=== PATIENT | female | born 1930 | race Caucasian/White ===

== ENCOUNTER 2017-01-12 08:57 | Emergency (ER) | payer OTHER ==
--- NOTE | 2017-01-12 10:31 | DIAGNOSTIC IMAGING REPORT ---
PROCEDURE: XR ELBOW 3 OR 4 VIEWS - RIGHT INDICATION: TRAUMA/INJURY TECHNIQUE: Four views. COMPARISON: None. FINDINGS: Osseous structures and joint spaces are normal. No evidence of an effusion. IMPRESSION: 1. Normal right elbow.
--- NOTE | 2017-01-12 11:14 | ED CLINICAL REPORT ---
Clinical Report - Physicians/Mid Levels [facility] [address] [place] [place] [address] 01/12/2017 8:57 [id number] Time Seen: 09:33 Jan 12 2017. Historian- patient. CPT: ER phys charges level 4 plus (#564887). Up to 2.5 cm simple scalp, neck (#[id number]). HISTORY OF PRESENT ILLNESS Location of injuries- (right elbow and right forearm.). Chief Complaint: right elbow and right forearm. The injury occurred just prior to arrival. Fell. Occurred at home. ( FALL (while walking down the last 2 steps, into a closed door)). The patient complains of moderate pain. No blow to the head, neck pain or loss of consciousness. Not dazed. (Right leg has periodically gone out on her since age 28. Her leg gave out when she fell today,). REVIEW OF SYSTEMS No numbness, dizziness, chest pain, difficulty breathing or headache. No nausea, abdominal pain, fever or vomiting. She sustained skin laceration but has no pain on weight bearing. All systems otherwise negative, except as recorded above. PAST HISTORY Pacemaker. Head Injury. Drop foot. Back Pain. Heart valve replacement. ADDITIONAL SURGERIES: Back Surgery. Cataract Surgery. Heart valve surgery. Medications: Eliquis Oral (Tablet 2.5 mg) 1 tablet, daily. Potassium Chloride Oral 10 meq, 2x a day. Vitamin C (Calcium Ascorbate) Oral. Vitamin B 12 Oral. Alertec 10 mg daily. Aspirin Oral (Tablet 81 mg). Butrans Transdermal (Patch Weekly 10 mcg/hr), weekly. Bystolic Oral (Tablet 5 mg). Furosemide Oral 20 mg, daily. Vitamin D Oral 5000u. Allergies: Cortisone. Iodine. IV Contrast. Metoprolol. Sulfa Antibiotics. SOCIAL HISTORY Light tobacco smoker (cigarette)- less than 1/2 a pack per day. No alcohol use or drug use. ADDITIONAL NOTES The nursing notes have been reviewed. PHYSICAL EXAM Vital Signs: 01/12/2017 09:16 BP: 143/69. HR: 64. RR: 19. O2 saturation: 98%. Temp: 97.9 F. Pain level now: 3/10. Appearance: Alert. No acute distress. Head: Head non-tender. No swelling of head. Eyes: Pupils equal, round and reactive to light. EOM intact. ENT: Pharynx normal. Neck: Painless ROM. Non-tender. CVS: Heart sounds normal. Pulses normal. Respiratory: Breath sounds normal. Chest nontender. Abdomen: Soft and nontender. Back: No tenderness. Skin: Skin warm. Normal skin color. Extremities: Right elbow: moderate tenderness and swelling, laceration and small abrasion located in the area of the radial head. SEE LACERATION PROCEDURE NOTE. Neurovascular intact distally. No joint effusion or limitation in ROM. Neuro: Oriented X 3. No motor deficit. No sensory deficit. Reflexes normal. LABS, X-RAYS, AND EKG X-Rays: Right elbow negative. PROGRESS AND PROCEDURES Laceration Repair: Location: right elbow. Length: 2 cm. Complexity: simple (local anesthesia used and sutured). Wound depth/shape- subcutaneous and flap-like. Wound is clean. Distal neuro/vascular/tendon status normal. Local anesthesia provided using 2% lidocaine with bicarb. Prepped with Hibiclens. Wound explored, cleansed, irrigated and examined to the base in bloodless field extensively with normal saline. Closure of skin: interrupted 4-0 (3 sutures). Post-procedure: she is stable and there are no complications. Bleeding is controlled and neuro-vascular status is intact distal to the wound. Dressing applied. Tetanus immunization given. Estimated blood loss: 1 mL. Course of Care: Only point of injury is the right elbow. Patient/family counseled. Disposition: Discharged. Condition: stable. CLINICAL IMPRESSION Single deep laceration to the right elbow.No foreign body present. Single contusion with soft tissue hematoma to the right elbow. Fall on same level by stumbling. INSTRUCTIONS Apply ice for 15-20 minutes three times a day for one days. Protect wound and keep wound area clean. Change dressing twice daily. Keep wounds dry. You may wash wounds briefly, then dry. Apply neosporin twice daily. Sutures should be removed in seven days. Warnings: TETANUS: You were given a tetanus shot during your visit. Make a note for future reference. GENERAL WARNINGS: Return or contact your physician immediately if your condition worsens or changes unexpectedly, if not improving as expected, or if other problems arise. Your Current Medications: CONTINUE TAKING THE FOLLOWING MEDICATIONS: Alertec* : 10 mg daily. Aspirin Oral : Tablet 81 mg. Butrans Transdermal : Patch Weekly 10 mcg/hr, weekly. Bystolic Oral : Tablet 5 mg. Eliquis Oral : Tablet 2.5 mg, 1 tablet daily. Furosemide Oral : 20 mg daily. Potassium Chloride Oral : 10 meq 2x a day. Vitamin B 12 Oral. Vitamin C (Calcium Ascorbate) Oral. Vitamin D Oral : 5000u. OTC Medications: Acetaminophen (available over the counter): take according to label instructions. Follow-up: Follow up with your doctor in one week. Call for an appointment. Understanding of the discharge instructions verbalized by patient and family. (Electronically signed by Koko Ramirez MD 01/13/2017 7:39)
--- NOTE | 2017-01-12 11:14 | ED NURSING NOTES ---
Clinical Report - Nurses [facility] [address] [place] [address] 01/12/2017 8:57 Patient: DANUTA STARR TRIAGE Triage time 09:16. Acuity: LEVEL 4. Chief Complaint: FALL (while walking down the last 2 steps, into a closed door). Alert. --09:27 Odilia Mercado R.N. 09:16 01/12/17. BP: 143/69. HR: 64. RR: 19. O2 saturation: 98%. Temp: 97.9 F. Pain level now: 01/12. --09:27 Odilia Mercado R.N. Weight: 52.1 kg stated. Height/Length: 60 inches Per Patient. BMI: 22.4. --09:17 Odilia Mercado R.N. Medications Alertec 10 mg daily. Aspirin Oral (Tablet 81 mg). Butrans Transdermal (Patch Weekly 10 mcg/hr), weekly. Bystolic Oral (Tablet 5 mg). Furosemide Oral 20 mg, daily. Vitamin D Oral 5000u. --09:19 Odilia Mercado R.N. Vitamin B 12 Oral. --09:20 Odilia Mercado R.N. Vitamin C (Calcium Ascorbate) Oral. --09:21 Odilia Mercado R.N. Potassium Chloride Oral 10 meq, 2x a day. --09:39 Odilia Mercado R.N. Eliquis Oral (Tablet 2.5 mg) 1 tablet, daily. --09:43 Odilia Mercado R.N. The following entry was struck by Odilia Mercado R.N., 09:39 (01/12/17) Reason - other. <<STRICKEN ENTRY-- Potassimin Oral 10 meq BID. --09:19 Odilia Mercado R.N. --END STRIKE>>. Allergies Iodine. Sulfa Antibiotics. --09:18 Odilia Mercado R.N. Cortisone. IV Contrast. Metoprolol. --09:22 Odilia Mercado R.N. History Arrived by private vehicle. Historian: patient. Location of injuries: right elbow and right forearm. This occurred just prior to arrival and today. Occurred at home. Treatment VENUE ATTENDANT: None. SOCIAL HX: Light tobacco smoker- less than 1/2 a pack per day. No alcohol use or drug use. FUNCTIONAL ASSESSMENT: Functional assessment: no impairments noted. LEARNING NEEDS ASSESSMENT: The learning needs assessment revealed no barriers. ABUSE ASSESSMENT: Abuse assessment: ('yes') The patient was asked "Do you feel safe in your home?". --09:27 Odilia Mercado R.N. PROBLEMS: Pacemaker. Head Injury. Drop foot. Back Pain. Heart valve replacement. --09:23 Odilia Mercado R.N. ADDITIONAL SURGERIES: Back Surgery. Cataract Surgery. Heart valve surgery. --09:24 Odilia Mercado R.N. Interventions ID band on patient. To room. --09:27 Odilia Mercado R.N. PHYSICAL ASSESSMENT GENERAL / NEURO / PSYCH: Alert. Oriented X 4. RESPIRATORY: Respirations not labored. SKIN: ( appears to be a skin tear about 1 inch in length, will be easier to assess after cleaning blood off of it.). --09:28 Odilia Mercado R.N. NURSING PROGRESS NOTES 09:28 01/12/17. Patient identifiers checked. Call light placed in reach. Bed placed in lowest position. Patient ready for evaluation- chart flagged. --09:28 Odilia Mercado R.N. 09:34 01/12/2017 TDAP IM 0.5 mL given. (Lot#: [id number], expiration date: 08/09/2018, Petroleum Refinery Laborer: sanofi pasteur). Allergies verified and confirmed 5 rights. Vaccine information statement provided to the patient. --09:34 Odilia Mercado R.N. 11:15. Wound cleansed with sterile saline. Applied clean dressing consisting of adaptic. Secured with tape and kerlix. --11:22 Jesenia Gallego R.N. DISPOSITION / DISCHARGE 11:20. Condition at departure: improved. No learning barriers present. Discharge instructions provided and reviewed with the patient and family. Reviewed wound care instructions. Patient and family verbalized understanding. Written instructions provided in Greek. The patient was discharged home and accompanied by family. She left the Emergency Department ambulatory and via private vehicle. Family member driving. Medication list reviewed and validated. --11:24 Jesenia Gallego R.N. 11:22 01/12/17. BP: 126/76. HR: 69. RR: 18. O2 saturation: 97% on room air. Temp: deferred. Pain level now: 11/14. 09:16 01/12/17. BP: 143/69. HR: 64. RR: 19. O2 saturation: 98%. Temp: 97.9 F. Pain level now: 01/12. --11:24 Jesenia Gallego R.N. Locked/Released at 01/12/2017 11:25 by Jesenia Gallego R.N.
--- NOTE | 2017-01-12 11:14 | ED ORDER SUMMARY ---
..... Patient: DANUTA STARR OrderSheet [facility] VisitID: [id number] [address] [place] [address] 86y, F Registration Date/Time: 01/12/2017 ORDER SHEET Weight: 52.1 kg (stated) Allergies: Iodine, Sulfa Antibiotics, Cortisone, IV Contrast, Metoprolol GENERAL ORDERS: Elbow 3 or 4V Right Urgent (09:50 01/12/2017 Octavio HATCH) ([facility] (10:10 Abril) MEDICATION ORDERS: Tdap IM 0.5 mL (per protocol) (09:33 01/12/2017 Eber R.NKristie verbal order read back to Octavio HATCH) (9:34 Eber R.N.) IV FLUIDS: ORDER SHEET NOTES: [Electronically signed by Jesenia Gallego R.N. (11:25 01/12/2017)] [Electronically signed by Koko Ramirez MD (07:39 01/13/2017)] [Electronically locked/signed by Jesenia Gallego R.N. (11:25 01/12/2017)]
--- NOTE | 2017-01-12 11:14 | ED CLINICAL REPORT ---
Clinical Report - Physicians/Mid Levels [facility] [address] [place] [address] 01/12/2017 8:57 [id number] Time Seen: 09:33 Jan 12 2017. Historian- patient. CPT: ER phys charges level 4 plus (#349040). Up to 2.5 cm simple scalp, neck (#[id number]). HISTORY OF PRESENT ILLNESS Location of injuries- (right elbow and right forearm.). Chief Complaint: right elbow and right forearm. The injury occurred just prior to arrival. Fell. Occurred at home. ( FALL (while walking down the last 2 steps, into a closed door)). The patient complains of moderate pain. No blow to the head, neck pain or loss of consciousness. Not dazed. (Right leg has periodically gone out on her since age 28. Her leg gave out when she fell today,). REVIEW OF SYSTEMS No numbness, dizziness, chest pain, difficulty breathing or headache. No nausea, abdominal pain, fever or vomiting. She sustained skin laceration but has no pain on weight bearing. All systems otherwise negative, except as recorded above. PAST HISTORY Pacemaker. Head Injury. Drop foot. Back Pain. Heart valve replacement. ADDITIONAL SURGERIES: Back Surgery. Cataract Surgery. Heart valve surgery. Medications: Eliquis Oral (Tablet 2.5 mg) 1 tablet, daily. Potassium Chloride Oral 10 meq, 2x a day. Vitamin C (Calcium Ascorbate) Oral. Vitamin B 12 Oral. Alertec 10 mg daily. Aspirin Oral (Tablet 81 mg). Butrans Transdermal (Patch Weekly 10 mcg/hr), weekly. Bystolic Oral (Tablet 5 mg). Furosemide Oral 20 mg, daily. Vitamin D Oral 5000u. Allergies: Cortisone. Iodine. IV Contrast. Metoprolol. Sulfa Antibiotics. SOCIAL HISTORY Light tobacco smoker (cigarette)- less than 1/2 a pack per day. No alcohol use or drug use. ADDITIONAL NOTES The nursing notes have been reviewed. PHYSICAL EXAM Vital Signs: 01/12/2017 09:16 BP: 143/69. HR: 64. RR: 19. O2 saturation: 98%. Temp: 97.9 F. Pain level now: 3/10. Appearance: Alert. No acute distress. Head: Head non-tender. No swelling of head. Eyes: Pupils equal, round and reactive to light. EOM intact. ENT: Pharynx normal. Neck: Painless ROM. Non-tender. CVS: Heart sounds normal. Pulses normal. Respiratory: Breath sounds normal. Chest nontender. Abdomen: Soft and nontender. Back: No tenderness. Skin: Skin warm. Normal skin color. Extremities: Right elbow: moderate tenderness and swelling, laceration and small abrasion located in the area of the radial head. SEE LACERATION PROCEDURE NOTE. Neurovascular intact distally. No joint effusion or limitation in ROM. Neuro: Oriented X 3. No motor deficit. No sensory deficit. Reflexes normal. LABS, X-RAYS, AND EKG X-Rays: Right elbow negative. PROGRESS AND PROCEDURES Laceration Repair: Location: right elbow. Length: 2 cm. Complexity: simple (local anesthesia used and sutured). Wound depth/shape- subcutaneous and flap-like. Wound is clean. Distal neuro/vascular/tendon status normal. Local anesthesia provided using 2% lidocaine with bicarb. Prepped with Hibiclens. Wound explored, cleansed, irrigated and examined to the base in bloodless field extensively with normal saline. Closure of skin: interrupted 4-0 (3 sutures). Post-procedure: she is stable and there are no complications. Bleeding is controlled and neuro-vascular status is intact distal to the wound. Dressing applied. Tetanus immunization given. Estimated blood loss: 1 mL. Course of Care: Only point of injury is the right elbow. Patient/family counseled. Disposition: Discharged. Condition: stable. CLINICAL IMPRESSION Single deep laceration to the right elbow.No foreign body present. Single contusion with soft tissue hematoma to the right elbow. Fall on same level by stumbling. INSTRUCTIONS Apply ice for 15-20 minutes three times a day for one days. Protect wound and keep wound area clean. Change dressing twice daily. Keep wounds dry. You may wash wounds briefly, then dry. Apply neosporin twice daily. Sutures should be removed in seven days. Warnings: TETANUS: You were given a tetanus shot during your visit. Make a note for future reference. GENERAL WARNINGS: Return or contact your physician immediately if your condition worsens or changes unexpectedly, if not improving as expected, or if other problems arise. Your Current Medications: CONTINUE TAKING THE FOLLOWING MEDICATIONS: Alertec* : 10 mg daily. Aspirin Oral : Tablet 81 mg. Butrans Transdermal : Patch Weekly 10 mcg/hr, weekly. Bystolic Oral : Tablet 5 mg. Eliquis Oral : Tablet 2.5 mg, 1 tablet daily. Furosemide Oral : 20 mg daily. Potassium Chloride Oral : 10 meq 2x a day. Vitamin B 12 Oral. Vitamin C (Calcium Ascorbate) Oral. Vitamin D Oral : 5000u. OTC Medications: Acetaminophen (available over the counter): take according to label instructions. Follow-up: Follow up with your doctor in one week. Call for an appointment. Understanding of the discharge instructions verbalized by patient and family. (Electronically signed by Koko Ramirez MD 01/13/2017 7:39)
--- NOTE | 2017-01-12 11:14 | ED ORDER SUMMARY ---
..... Patient: DANUTA STARR OrderSheet [facility] VisitID: [id number] [address] [place] [address] 86y, F Registration Date/Time: 01/12/2017 ORDER SHEET Weight: 52.1 kg (stated) Allergies: Iodine, Sulfa Antibiotics, Cortisone, IV Contrast, Metoprolol GENERAL ORDERS: Elbow 3 or 4V Right Urgent (09:50 01/12/2017 Octavio HATCH) ([facility] (10:10 Abrli) MEDICATION ORDERS: Tdap IM 0.5 mL (per protocol) (09:33 01/12/2017 Eber R.NKristie verbal order read back to Octavio HATCH) (9:34 Eber R.N.) IV FLUIDS: ORDER SHEET NOTES: [Electronically signed by Jesenia Gallego R.N. (11:25 01/12/2017)] [Electronically signed by Koko Ramirez MD (07:39 01/13/2017)] [Electronically locked/signed by Jesenia Gallego R.N. (11:25 01/12/2017)]
--- NOTE | 2017-01-12 11:14 | ED NURSING NOTES ---
Clinical Report - Nurses [facility] [address] [place] [address] 01/12/2017 8:57 Patient: DANUTA STARR TRIAGE Triage time 09:16. Acuity: LEVEL 4. Chief Complaint: FALL (while walking down the last 2 steps, into a closed door). Alert. --09:27 Odilia Mercado R.N. 09:16 01/12/17. BP: 143/69. HR: 64. RR: 19. O2 saturation: 98%. Temp: 97.9 F. Pain level now: 01/12. --09:27 Odilia Mercado R.N. Weight: 52.1 kg stated. Height/Length: 60 inches Per Patient. BMI: 22.4. --09:17 Odilia Mercado R.N. Medications Alertec 10 mg daily. Aspirin Oral (Tablet 81 mg). Butrans Transdermal (Patch Weekly 10 mcg/hr), weekly. Bystolic Oral (Tablet 5 mg). Furosemide Oral 20 mg, daily. Vitamin D Oral 5000u. --09:19 Odilia Mercado R.N. Vitamin B 12 Oral. --09:20 Odilia Mercado R.N. Vitamin C (Calcium Ascorbate) Oral. --09:21 Odilia Mercado R.N. Potassium Chloride Oral 10 meq, 2x a day. --09:39 Odilia Mercado R.N. Eliquis Oral (Tablet 2.5 mg) 1 tablet, daily. --09:43 Odilia Mercado R.N. The following entry was struck by Odilia Mercado R.N., 09:39 (01/12/17) Reason - other. <<STRICKEN ENTRY-- Potassimin Oral 10 meq BID. --09:19 Odilia Mercado R.N. --END STRIKE>>. Allergies Iodine. Sulfa Antibiotics. --09:18 dOilia Mercado R.N. Cortisone. IV Contrast. Metoprolol. --09:22 Odilia Mercado R.N. History Arrived by private vehicle. Historian: patient. Location of injuries: right elbow and right forearm. This occurred just prior to arrival and today. Occurred at home. Treatment PROPERTY INSURANCE AGENT: None. SOCIAL HX: Light tobacco smoker- less than 1/2 a pack per day. No alcohol use or drug use. FUNCTIONAL ASSESSMENT: Functional assessment: no impairments noted. LEARNING NEEDS ASSESSMENT: The learning needs assessment revealed no barriers. ABUSE ASSESSMENT: Abuse assessment: ('yes') The patient was asked "Do you feel safe in your home?". --09:27 Odilia Mercado R.N. PROBLEMS: Pacemaker. Head Injury. Drop foot. Back Pain. Heart valve replacement. --09:23 Odilia Mercado R.N. ADDITIONAL SURGERIES: Back Surgery. Cataract Surgery. Heart valve surgery. --09:24 Odilia Mercado R.N. Interventions ID band on patient. To room. --09:27 Odilia Mercado R.N. PHYSICAL ASSESSMENT GENERAL / NEURO / PSYCH: Alert. Oriented X 4. RESPIRATORY: Respirations not labored. SKIN: ( appears to be a skin tear about 1 inch in length, will be easier to assess after cleaning blood off of it.). --09:28 Odilia Mercado R.N. NURSING PROGRESS NOTES 09:28 01/12/17. Patient identifiers checked. Call light placed in reach. Bed placed in lowest position. Patient ready for evaluation- chart flagged. --09:28 Odilia Mercado R.N. 09:34 01/12/2017 TDAP IM 0.5 mL given. (Lot#: [id number], expiration date: 08/09/2018, Network Technology Instructor: sanofi pasteur). Allergies verified and confirmed 5 rights. Vaccine information statement provided to the patient. --09:34 Odilia Mercado R.N. 11:15. Wound cleansed with sterile saline. Applied clean dressing consisting of adaptic. Secured with tape and kerlix. --11:22 Jesenia Gallego R.N. DISPOSITION / DISCHARGE 11:20. Condition at departure: improved. No learning barriers present. Discharge instructions provided and reviewed with the patient and family. Reviewed wound care instructions. Patient and family verbalized understanding. Written instructions provided in Sami. The patient was discharged home and accompanied by family. She left the Emergency Department ambulatory and via private vehicle. Family member driving. Medication list reviewed and validated. --11:24 Jesenia Gallego R.N. 11:22 01/12/17. BP: 126/76. HR: 69. RR: 18. O2 saturation: 97% on room air. Temp: deferred. Pain level now: 11/14. 09:16 01/12/17. BP: 143/69. HR: 64. RR: 19. O2 saturation: 98%. Temp: 97.9 F. Pain level now: 01/12. --11:24 Jesenia Gallego R.N. Locked/Released at 01/12/2017 11:25 by Jesenia Gallego R.N.
--- NOTE | 2017-01-13 07:39 | ED MED RECONCILIATION SUMMARY ---
Patient: DANUTA STARR Medication Reconciliation Report [facility] VisitID: [id number] [address] [place] [address] 86y, F Registration Date/Time: 01/12/2017 Weight: 52.1 kg Height/Length: 60 in. BMI: 22.4 ALLERGIES: Cortisone, Iodine, IV Contrast, Metoprolol, Sulfa Antibiotics The patient's Home Medications are listed below: CONTINUE TAKING THE FOLLOWING MEDICATIONS: Alertec 10 mg daily Aspirin Oral (81 mg) Butrans Transdermal (10 mcg/hr), weekly Bystolic Oral (5 mg) Eliquis Oral (2.5 mg) 1 tablet, daily Furosemide Oral 20 mg, daily Potassium Chloride Oral 10 meq, 2x a day Vitamin B 12 Oral Vitamin C (Calcium Ascorbate) Oral Vitamin D Oral 5000u The source(s) of the original Home Medication information: Not obtained. The following Medications were given to the patient in the Emergency Department: TDAP [IM] IM 0.5 mL, administered: 01/12/2017 9:34:00 AM The following Medications were prescribed to the patient: Acetaminophen (available over the counter): take according to label instructions. -- Koko Ramirez MD
--- NOTE | 2017-01-13 07:39 | ED MAR SUMMARY ---
..... Medication Administration Record [facility] [address] [place] [address] Patient: DANUTA STARR Visit ID: [id number] 86y, F Weight: 52.1 kg Height/Length: 60 in BMI: 22.4 ALLERGIES: Cortisone, Metoprolol, IV Contrast, Iodine, Sulfa Antibiotics Given 09:34 01/12/2017 Odilia Mercado R.N. Medication Administered: TDAP [IM], Dose: 0.5 mL IM. Medication Ordered: Tdap IM 0.5 mL (per protocol).
--- NOTE | 2017-01-13 07:39 | ED MED RECONCILIATION SUMMARY ---
Patient: DANUTA STARR Medication Reconciliation Report [facility] VisitID: [id number] [address] [place] [address] 86y, F Registration Date/Time: 01/12/2017 Weight: 52.1 kg Height/Length: 60 in. BMI: 22.4 ALLERGIES: Cortisone, Iodine, IV Contrast, Metoprolol, Sulfa Antibiotics The patient's Home Medications are listed below: CONTINUE TAKING THE FOLLOWING MEDICATIONS: Alertec 10 mg daily Aspirin Oral (81 mg) Butrans Transdermal (10 mcg/hr), weekly Bystolic Oral (5 mg) Eliquis Oral (2.5 mg) 1 tablet, daily Furosemide Oral 20 mg, daily Potassium Chloride Oral 10 meq, 2x a day Vitamin B 12 Oral Vitamin C (Calcium Ascorbate) Oral Vitamin D Oral 5000u The source(s) of the original Home Medication information: Not obtained. The following Medications were given to the patient in the Emergency Department: TDAP [IM] IM 0.5 mL, administered: 01/12/2017 9:34:00 AM The following Medications were prescribed to the patient: Acetaminophen (available over the counter): take according to label instructions. -- Koko Ramirez MD
--- NOTE | 2017-01-13 07:39 | ED MAR SUMMARY ---
..... Medication Administration Record [facility] [address] [place] [address] Patient: DANUTA STARR Visit ID: [id number] 86y, F Weight: 52.1 kg Height/Length: 60 in BMI: 22.4 ALLERGIES: Cortisone, Metoprolol, IV Contrast, Iodine, Sulfa Antibiotics Given 09:34 01/12/2017 Odilia Mercado R.N. Medication Administered: TDAP [IM], Dose: 0.5 mL IM. Medication Ordered: Tdap IM 0.5 mL (per protocol).
--- NOTE | 2017-01-13 07:39 | ED DISCHARGE INSTRUCTIONS ---
Patient: DANUTA STARR General Instructions [facility] VisitID: [id number] [place] [address] 86y, F Registration Date/Time: 01/12/2017 Single deep laceration to the right elbow.No foreign body present. Single contusion with soft tissue hematoma to the right elbow. Fall on same level by stumbling. INSTRUCTIONS Apply ice for 15-20 minutes three times a day for one days. Protect wound and keep wound area clean. Change dressing twice daily. Keep wounds dry. You may wash wounds briefly, then dry. Apply neosporin twice daily. Sutures should be removed in seven days. Warnings: TETANUS: You were given a tetanus shot during your visit. Make a note for future reference. GENERAL WARNINGS: Return or contact your physician immediately if your condition worsens or changes unexpectedly, if not improving as expected, or if other problems arise. Your Current Medications: CONTINUE TAKING THE FOLLOWING MEDICATIONS: Alertec* : 10 mg daily. Aspirin Oral : Tablet 81 mg. Butrans Transdermal : Patch Weekly 10 mcg/hr, weekly. Bystolic Oral : Tablet 5 mg. Eliquis Oral : Tablet 2.5 mg, 1 tablet daily. Furosemide Oral : 20 mg daily. Potassium Chloride Oral : 10 meq 2x a day. Vitamin B 12 Oral. Vitamin C (Calcium Ascorbate) Oral. Vitamin D Oral : 5000u. OTC Medications: Acetaminophen (available over the counter): take according to label instructions. Follow-up: Follow up with your doctor in one week. Call for an appointment. Understanding of the discharge instructions verbalized by patient and family. ADDITIONAL INFORMATION Mechanical Fall You have had a fall today. It appears that the cause is mechanical. That means that you slipped, tripped or lost your balance. If your fall had been due to fainting or a seizure, further tests would be required. Home Care: Rest today and resume your normal activities when you are feeling back to normal. If you were injured during the fall, follow the advice from your doctor regarding care of your injury. You may use acetaminophen (Tylenol) or ibuprofen (Motrin, Advil) to control pain, unless another pain medicine was prescribed. [NOTE: If you have chronic liver or kidney disease or ever had a stomach ulcer or GI bleeding, talk with your doctor before using these medicines.] Fall Prevention: Was there anything that caused your fall that can be fixed, removed, or replaced? Make your home safe by keeping walkways clear of objects you may trip over. Use non-slip pads under rugs. Do not walk in poorly lit areas. Do not stand on chairs or wobbly ladders. Use caution when reaching overhead or looking upward. This position can cause a loss of balance. Be sure your shoes fit properly, have non-slip bottoms and are in good condition. Be cautious when going up and down curbs, and walking on uneven sidewalks. If your balance is poor, consider using a cane or walker. Stay as active as you can. Balance, flexibility, strength, and endurance all come from exercise. They all play a role in preventing falls. Follow Up with your doctor or as advised by our staff. Get Prompt Medical Attention if any of the following occur: Repeated mechanical falls, or unexplained falls Dizziness, fainting or seizure Severe headache Chest pain or shortness of breath Palpitations (very rapid or very slow or irregular heartbeat) Blood in vomit, stools (black or red color) Weakness of an arm or leg or one side of the face Difficulty with speech or vision Laceration (All Closures) Alaceration is a cut through the skin. This will usually require stitches (sutures) or liseth if it is deep. Minor cuts may be treated with a surgical tape closure orskin glue. Home care The following guidelines will help you care for your laceration at home: Extremity, face, or trunk wounds Keep the wound clean and dry. If a bandage was applied and it becomes wet or dirty, replace it. Otherwise, leave it in place for the first 24 hours. If stitches or liseth were used, clean the wound daily. After removing the bandage, wash the area with soap and water. Use a wet cotton swab to loosen and remove any blood or crust that forms. The doctor may prescribe an antibiotic cream or ointment to prevent infection. Do not stop taking this medication until you have finished the prescribed course or the doctor tells you to stop. The doctor may also prescribe medications for pain. Follow the doctors instructions for taking these medications. You may remove the bandage to shower as usual after the first 24 hours, but do not soak the area in water (no swimming) until the stitches or liseth are removed. If surgical tape was used, keep the area clean and dry. If it becomes wet, blot it dry with a towel. If skin glue was used, do not scratch, rub, or pick at the adhesive film. Do not place tape directly over the film. Do not apply liquid, ointment, or creams to the wound while the film is in place. Do not clean the wound with peroxide and do not apply ointments. Avoid activities that cause heavy sweating until the film has fallen off. Protect the wound from prolonged exposure to sunlight or tanning lamps. You may shower as usual but do not soak the wound in water (no baths or swimming). The film will fall off by itself in 510 days. Scalp wounds During the first two days, you may carefully rinse your hair in the shower to remove blood, glass or dirt particles. After two days, you may shower and shampoo your hair normally. Do not soak your scalp in the tub or go swimming until the stitches or liseth have been removed. Talk with your doctor before applying any antibiotic ointment to the wound. Mouth wounds Eat soft foods to reduce pain. If the cut is inside of your mouth, clean by rinsing after each meal and at bedtime with a mixture of equal parts water and hydrogen peroxide (do not swallow!). Or, you can use a cotton swab to directly apply hydrogen peroxide onto the cut. Mouth wounds can be painful when eating. You may use an [id number] local numbing solution for pain relief. If this is not available, you may use any numbing solution for teething babies. You may apply this directly to the sores with a cotton-tip swab or with your finger. Follow-up care Follow up with your health care provider. Most skin wounds heal within ten days. Mouth and facial wounds heal within five days. However, even with proper treatment, a wound infection may sometimes occur. Therefore, you should check the wound daily for signs of infection listed below. Stitches should be removed from the face within five days; stitches and liseth should be removed from other parts of the body within 714 days. If dissolving stitches were used in the mouth, these will fall out or dissolve without the need for removal. If tape closures were used, remove them yourself if they have not fallen off after 7 days. Ifskin glue was used, the film will fall off by itself in 510 days. When to seek medical care Get prompt medical attention if any of these occur: Bleeding not controlled by direct pressure Signs of infection, including increasing pain in the wound, increasing wound redness or swelling, or pus coming from the wound Fever of 100.4F (38C) or higher, or as directed by your health care provider Stitches or liseth come apart or fall out or surgical tape falls off before 7 days Wound edges re-open Laceration, Extremity (Sutures, Liseth, Or Tape) A laceration is a cut through the skin. This will usually require stitches (sutures) or liseth if it is deep. Minor cuts may be treated with surgical tape closures. Home care The following guidelines will help you care for your laceration at home: Keep the wound clean and dry. If a bandage was applied and it becomes wet or dirty, replace it. Otherwise, leave it in place for the first 24 hours, then change it once a day or as directed. If stitches or liseth were used, clean the wound daily: After removing the bandage, wash the area with soap and water. Use a wet cotton swab to loosen and remove any blood or crust that forms. After cleaning, keep the wound clean and dry. Talk with your doctor before applying any antibiotic ointment to the wound. Reapply the bandage. You may remove the bandage to shower as usual after the first 24 hours, but do not soak the area in water (no swimming) until the stitches or liseth are removed. If surgical tape closures were used, keep the area clean and dry. If it becomes wet, blot it dry with a towel. The doctor may prescribe an antibiotic cream or ointment to prevent infection. Do not stop taking this medication until you have finished the prescribed course or the doctor tells you to stop. The doctor may also prescribe medications for pain. Follow the doctors instructions for taking these medications. If you have chronic liver or kidney disease or ever had a stomach ulcer or GI bleeding, talk with your doctor before using these medicines. Follow-up care Follow up with your health care provider. Most skin wounds heal within ten days. However, an infection may sometimes occur despite proper treatment. Therefore, check the wound daily for the signs of infection listed below. Stitches and liseth should be removed within 714 days. If surgical tape closures were used, you may remove them after 10 days, if they have not fallen off by then. Notify your doctor if you notice persistent numbness or weakness in the injured extremity. (Note:A radiologist will review any X-rays that were taken. We will notify you of any new findings that may affect your care.) When to seek medical care Get prompt medical attention if any of these occur: Increasing pain in the wound Redness, swelling, or pus coming from the wound Fever of 100.4F (38C) or higher, or as directed by your health care provider If stitches or liseth come apart or fall out before your next appointment If the surgical tape closures fall off within seven days, or the wound edges re-open Bleeding not controlled by direct pressure Contusion,Soft Tissue You have a CONTUSION, which is a bruise with swelling and some bleeding under the skin. There are no broken bones. This injury takes a few days to a few weeks to heal. Home Care: 1) Keep the injured part elevated to reduce pain and swelling. This is especially important during the first 48 hours. 2) Make an ice pack (ice cubes in a plastic bag, wrapped in a towel) and apply for 20 minutes every 1-2 hours the first day. Continue this 3-4 times a day until the pain and swelling goes away. 3) You may use acetaminophen (Tylenol) or ibuprofen (Motrin, Advil) to control pain, unless another pain medicine was prescribed. [ NOTE : If you have chronic liver or kidney disease or ever had a stomach ulcer or GI bleeding, talk with your doctor before using these medicines.] Follow Up with your doctor or this facility if you are not improving within the next THREE days. [NOTE: If X-rays were taken, they will be reviewed by a radiologist. You will be notified of any new findings that may affect your care.] Get Prompt Medical Attention if any of the following occur: -- Pain or swelling increases -- Injured arm or leg becomes cold, blue, numb or tingly -- Redness, warmth or drainage from the skin Laceration, Extremity (Sutures, [place], Or Tape) A laceration is a cut through the skin. This will usually require stitches (sutures) or liseth if it is deep. Minor cuts may be treated with surgical tape closures. Home care The following guidelines will help you care for your laceration at home: Keep the wound clean and dry. If a bandage was applied and it becomes wet or dirty, replace it. Otherwise, leave it in place for the first 24 hours, then change it once a day or as directed. If stitches or liseth were used, clean the wound daily: After removing the bandage, wash the area with soap and water. Use a wet cotton swab to loosen and remove any blood or crust that forms. After cleaning, keep the wound clean and dry. Talk with your doctor before applying any antibiotic ointment to the wound. Reapply the bandage. You may remove the bandage to shower as usual after the first 24 hours, but do not soak the area in water (no swimming) until the stitches or liseth are removed. If surgical tape closures were used, keep the area clean and dry. If it becomes wet, blot it dry with a towel. The doctor may prescribe an antibiotic cream or ointment to prevent infection. Do not stop taking this medication until you have finished the prescribed course or the doctor tells you to stop. The doctor may also prescribe medications for pain. Follow the doctors instructions for taking these medications. If you have chronic liver or kidney disease or ever had a stomach ulcer or GI bleeding, talk with your doctor before using these medicines. Follow-up care Follow up with your health care provider. Most skin wounds heal within ten days. However, an infection may sometimes occur despite proper treatment. Therefore, check the wound daily for the signs of infection listed below. Stitches and liseth should be removed within 714 days. If surgical tape closures were used, you may remove them after 10 days, if they have not fallen off by then. Notify your doctor if you notice persistent numbness or weakness in the injured extremity. (Note:A radiologist will review any X-rays that were taken. We will notify you of any new findings that may affect your care.) When to seek medical care Get prompt medical attention if any of these occur: Increasing pain in the wound Redness, swelling, or pus coming from the wound Fever of 100.4F (38C) or higher, or as directed by your health care provider If stitches or liseth come apart or fall out before your next appointment If the surgical tape closures fall off within seven days, or the wound edges re-open Bleeding not controlled by direct pressure You have been given the following additional information: Fall, Mechanical Laceration, All Laceration, Extrem (Suture, Staple, Or Tape) Contusion, Soft Tissue Laceration, Extrem (Suture, Staple, Or Tape) (Electronically signed by Koko Ramirez MD 01/13/2017 7:39)
== END 2017-01-12 11:20 | disposition home or self-care (01) ==
LOC: ED SRH 08:57
DX: S51.011A Laceration without foreign body of right elbow, initial encounter (principal); W01.0XXA Fall on same level from slipping, tripping and stumbling without subsequent striking against object, initial encounter; Y92.009 Unspecified place in unspecified non-institutional (private) residence as the place of occurrence of the external cause; F17.210 Nicotine dependence, cigarettes, uncomplicated; Z23 Encounter for immunization; Z79.899 Other long term (current) drug therapy; Z88.2 Allergy status to sulfonamides; Z88.8 Allergy status to other drugs, medicaments and biological substances; Z91.041 Radiographic dye allergy status